=== PATIENT | male | born 1975 | race Caucasian/White ===

== ENCOUNTER 2018-11-20 22:41 | Emergency (ER) | payer SELFPAY ==
[~2018-11-20] VITALS: Ht 180.3 cm; Wt 97.5 kg
== END 2018-11-21 02:09 | disposition home or self-care (01) ==
LOC: ED 22:41
DX: N20.0 Calculus of kidney (principal); Z90.49 Acquired absence of other specified parts of digestive tract; Z88.1 Allergy status to other antibiotic agents
CPT/HCPCS: 74176; 81001; 96374; 96375; 96376; 99284-25; J1170; J2405